=== PATIENT | male | born 1975 | race Caucasian/White ===

== ENCOUNTER 2023-11-03 07:33 | Emergency (ER) | payer MEDICAID ==
[~2023-11-03] VITALS: Ht 175.3 cm; Wt 127.0 kg
[~2023-11-03 07:33] MED LIST: ATEN-169 PO; ATOR20TA PO; ESOM20CA PO; FLO44IN IH; FURO40TA4 PO; HYDR1TAB PO; LEVA15HF4 IH; MOT200T PO; POTA20TA39 PO; VALS80TA2 PO
[2023-11-03 08:34] VITALS: BP 120/73; PULSE 74; TEMP 97; O2SAT 95
[2023-11-03] MEDS ORDERED: ketorolac trometh. 30mg/ml inj. IM ONE (10:10)
[2023-11-03] MEDS: ketorolac tromethamine 15mg/ml inj. IM ONE (10:17)
[2023-11-03 10:44] VITALS: RESP 20
[2023-11-03 11:20] LABS: BASOPHILS % (AUTO) 0.4 % (0-1); EOSINOPHILS # (AUTO) 0.1 X10'3 (0-0.9); EOSINOPHILS % (AUTO) 2.3 % (0-6); HEMATOCRIT 49.1 % (42.0-52.0); HEMOGLOBIN 16.5 g/dl (14.0-17.9); LYMPHOCYTES # (AUTO) 1.8 X10'3 (1.1-4.8); LYMPHOCYTES % (AUTO) 32.7 % (21-51); MEAN CORPUSCULAR HEMOGLOBIN 32.7 PG (27.0-31.0); MEAN CORPUSCULAR HGB CONC 33.5 g/dL (33.0-36.5); MEAN CORPUSCULAR VOLUME 97.5 FL (78-98); MEAN PLATELET VOLUME 8.5 FL (7.4-10.4); MONOCYTES # (AUTO) 0.7 X10'3 (0-0.9); MONOCYTES % (AUTO) 11.8 % (2-12); NEUTROPHILS % (AUTO) 52.8 % (42-75); PLATELET COUNT 135 X10'3 (140-440); RED BLOOD COUNT 5.04 X10'6 (4.70-6.10); RED CELL DISTRIBUTION WIDTH 13.2 % (11.5-14.5); WHITE BLOOD COUNT 5.6 X10'3 (4.5-11.0)
== END 2023-11-03 13:39 | disposition home or self-care (01) ==
LOC: ER 07:34
DX: M77.8 Other enthesopathies, not elsewhere classified (principal); I10 Essential (primary) hypertension; G89.29 Other chronic pain; F17.210 Nicotine dependence, cigarettes, uncomplicated; F15.90 Other stimulant use, unspecified, uncomplicated; Z56.0 Unemployment, unspecified; Z88.8 Allergy status to other drugs, medicaments and biological substances; Z79.899 Other long term (current) drug therapy; Z79.1 Long term (current) use of non-steroidal anti-inflammatories (NSAID)
CPT/HCPCS: 36415; 73080; 84145; 85025; 86140; 96372; 99284; J1885; A4565; A6449

== ENCOUNTER 2024-08-28 20:01 | Emergency (ER) | payer MEDICAID ==
[~2024-08-28] VITALS: Ht 175.3 cm; Wt 122.2 kg
[2024-08-28 20:17] VITALS: BP 144/98
[2024-08-28] MEDS: ketorolac trometh 30MG/ML vial 30 MG/ML VIAL IM STA (20:57)
[2024-08-28] MEDS ORDERED: MELO-102 PO (22:31)
[2024-08-28 22:36] VITALS: PULSE 88; RESP 14; TEMP 98.6; O2SAT 99
== END 2024-08-28 22:45 | disposition home or self-care (01) ==
LOC: ER 20:02
DX: M25.562 Pain in left knee (principal); M25.561 Pain in right knee; I10 Essential (primary) hypertension; F15.90 Other stimulant use, unspecified, uncomplicated; Z88.8 Allergy status to other drugs, medicaments and biological substances
CPT/HCPCS: 73564; 96372; 99283; J1885